=== PATIENT | female | born 1985 | race Caucasian/White ===

== ENCOUNTER 2019-05-04 12:00 | Emergency (ER) | payer OTHER, SELFPAY ==
[2019-05-04 12:13] VITALS: BP 124/63; PULSE 117; RESP 20; TEMP 39.7; O2SAT 100
--- NOTE | 2019-05-04 12:20 | ED.GENADULT ---
HPI - General Adult General Chief complaint: Upper Respiratory Infection Stated complaint: fever/cough/vomiting Time Seen by Provider: 05/04/19 12:20 Source: patient and RN notes reviewed Mode of arrival: ambulatory Limitations: no limitations History of Present Illness HPI narrative: 33-year-old female presents with complaints of upper respiratory infection symptoms, fever, chills, body aches, RT ear pain and cough for 2 days. Increase symptoms with right ear pain and nausea and vomiting over the last 24 hours. Ibuprofen 800 mg (last on 05/03/2019 at 1900), NyQuil, and Benadryl with little relief. Dry cough with intermittent productive cough (clear phlegm). Rhinorrhea and nasal congestion. Exacerbating factors consist of smoke exposure. High fevers, highest 102 F, orally with intermittent chills. Nausea and vomiting without blood or coffee-ground contents or abdominal pain. Last emesis episode today approximately 11 AM denies nausea at this time. Denies ear itching, tinnitus, hearing loss, or trauma. Denies chest pain, dyspnea, coughing up blood, difficulty swallowing, jaw pain, dental pain, facial pain, foreign body sensation, and rash. Amira denies being , LMP 04/27/19. Some parts of this dictation were generated by voice recognition software and may contain typographical and/or grammatical inaccuracies. Related Data Allergies Allergy/AdvReac Type Severity Reaction Status Date / Time No Known Allergies Allergy Unknown Verified 05/04/19 12:18 Review of Systems Review of Systems: Narrative: CONSTITUTIONAL: Complains of fever, chills. Denies sweats. EYES: Denies visual changes, redness, discharge. ENT: Complains of rhinorrhea, congestion, RT otalgia. Denies sore throat. CARDIOVASCULAR: Denies chest pain, palpitations, edema. RESPIRATORY: Denies dyspnea, wheezing. Complains of dry cough, intermittent productive cough. GASTROINTESTINAL: Denies abdominal pain, diarrhea. Complains of nausea, vomiting. GENITOURINARY: Denies dysuria, hematuria, abnormal discharge. SKIN: Denies rash or itching. MUSCULOSKELETAL: Denies acute back pain, joint pain. Complains of myalgia. NEUROLOGIC: Denies numbness or focal weakness. PSYCHIATRIC: Denies anxiety or depression. All systems reviewed & are unremarkable except as noted in HPI and below. [facility] Past Medical History Medical History (Updated 05/04/19 @ 12:47 by NADIA Crespo) No significant past medical history Surgical History Surgical History (Updated 05/04/19 @ 12:39 by NADIA Crespo) History of dental surgery Family History Family History Mother Hypertension Patient's mother is in good health Father Patient's father is in good health Sibling Patient's brother is in good health Social History Social History (Updated 05/04/19 @ 12:40 by NADIA Crespo) Smoking status: Former smoker Second hand tobacco smoke exposure: No Alcohol intake: current Alcohol use details: Occasional Substance use type: marijuana Living arrangements: with family Occupation/Education: occupation Gender identity (if verbalized by the patient): Female Comments At time of signature, agree with nurse past medical, surgical, social, and family history. There is no relevant family history pertinent to the presenting complaint. Exam Narrative: Exam Narrative: GENERAL: This is a well-nourished, well-developed patient, in no apparent distress. Speaks in full sentences and ambulates with steady gait without dyspnea. HEAD: normocephalic, atraumatic. EYES: PERRL. Sclera clear/white. Vision is grossly intact. EARS: Pinna is normal shape and contour. Clear external auditory canals. LT TM pearly willams with good cone of light, no erythema or suppuration. RT TM moderate erythema and bulging, no drainage or suppuration. No tenderness with manipulation. No gross hearing deficit. NOSE: Externa
[2019-05-04 12:33] VITALS: TEMP 39.7
[2019-05-04] MEDS: IBUPROFEN 600 MG TABLET PO (12:33)
[2019-05-04 12:37] VITALS: TEMP 39.7
[2019-05-04] MEDS: ACETAMINOPHEN 500 MG TABLET 1000 MG PO (12:37)
[2019-05-04 13:29] VITALS: TEMP 39.3
== END 2019-05-04 13:15 | disposition home or self-care (01) ==
PROVIDERS: Emergency Provider Nurse Practitioner Family
DX: J10.1 Influenza due to other identified influenza virus with other respiratory manifestations (principal); H66.001 Acute suppurative otitis media without spontaneous rupture of ear drum, right ear; Z87.891 Personal history of nicotine dependence
CPT/HCPCS: 87804; 99213; A9270; G0463